=== PATIENT | male | born 1970 | race Two or more races ===

== ENCOUNTER 2023-03-22 13:59 | Emergency (ER) | payer OTHER ==
[~2023-03-22] VITALS: Ht 175.3 cm; Wt 136.4 kg
[2023-03-22] MEDS ORDERED: CARV12 PO (14:03)
[2023-03-22 14:04] VITALS: TEMP 98.3
[2023-03-22] MEDS ORDERED: CEPHALEXIN MONOHYDRATE 500 MG CAPSULE PO ONE (15:15)
[2023-03-22] MEDS ORDERED: SULFAMETHOX/TRIMETH DS 800-160 MG/TABLET PO ONE (15:15)
[2023-03-22] MEDS ORDERED: CEPH-558 PO (15:19)
[2023-03-22] MEDS ORDERED: SULF-261 PO (15:19)
[2023-03-22 15:55] VITALS: BP 108/60; PULSE 87; RESP 18
== END 2023-03-22 15:56 | disposition home or self-care (01) ==
LOC: EMS 13:59
DX: L03.115 Cellulitis of right lower limb (principal); I10 Essential (primary) hypertension
CPT/HCPCS: 99283

== ENCOUNTER → 2023-08-17 | Emergency (ER) | payer OTHER ==
[~2023-08-17] VITALS: Ht 175.3 cm; Wt 127.3 kg
[~2023-08-17] MED LIST: CARV12 PO; CEPH-558 PO; CYCL-448 PO; LIDO700A15 TP; SULF-261 PO; TRAM50TA5 PO
[2023-08-17 17:46] VITALS: BP 108/78; PULSE 76; RESP 18; TEMP 98.3
[2023-08-17] MEDS: TraMADol HCL 50 MG TABLET PO ONE (21:44)
[2023-08-17] MEDS: LIDOCAINE 5% TRANSDERMAL PATCH TD ONE (21:45)
[2023-08-17] MEDS: KETOROLAC TROMETHAMINE 30 MG/ML VIAL IM ONE (21:45)
== END | disposition still patient (30) ==
LOC: EMS 17:36
DX: M54.12 Radiculopathy, cervical region (principal); I10 Essential (primary) hypertension
CPT/HCPCS: 99283; 73030; 96372; J1885